=== PATIENT | female | born 1960 | race Two or more races ===

== ENCOUNTER 2023-07-05 12:52 | Emergency (ER) | payer MEDICARE, OTHER ==
[~2023-07-05] VITALS: Ht 157.5 cm; Wt 77.0 kg
[2023-07-05 15:15] VITALS: BP 121/49; PULSE 72; RESP 16; TEMP 97.9; O2SAT 97
== END 2023-07-05 15:39 | disposition home or self-care (01) ==
LOC: ER 12:52
DX: N63.10 Unspecified lump in the right breast, unspecified quadrant (principal)
CPT/HCPCS: 76642